=== PATIENT | female | born 1975 ===

== ENCOUNTER 2023-09-04 10:22 | Outpatient (CLI) | payer BC ==
[2023-09-04] MEDS ORDERED: GADOTERATE MEGLUMINE 7.5 MMOL/15 ML VIAL IV ONE (11:24)
== END 2023-09-04 23:59 | disposition home or self-care (01) ==
LOC: MRI 10:22
PROVIDERS: ATTEND Family Medicine Sports Medicine
DX: S56.312A Strain of extensor or abductor muscles, fascia and tendons of left thumb at forearm level, initial encounter (principal); S66.212A Strain of extensor muscle, fascia and tendon of left thumb at wrist and hand level, initial encounter; M25.552 Pain in left hip; M25.532 Pain in left wrist; M70.62 Trochanteric bursitis, left hip; R60.0 Localized edema; M77.8 Other enthesopathies, not elsewhere classified; X58.XXXA Exposure to other specified factors, initial encounter; Y93.89 Activity, other specified; Y92.89 Other specified places as the place of occurrence of the external cause; Y99.8 Other external cause status
CPT/HCPCS: 73223; A9575